=== PATIENT | female | born 1960 | race Asian ===

== ENCOUNTER 2021-07-31 11:49 | Emergency (ER) | payer OTHER ==
[~2021-07-31] VITALS: Ht 147.3 cm; Wt 61.4 kg
[2021-07-31 12:45] VITALS: BP 122/74
[2021-07-31] MEDS ORDERED: DiphenhydrAMINE HCL 25 MG CAPSULE PO ONE (12:45)
== END 2021-07-31 13:04 | disposition home or self-care (01) ==
LOC: EMS 11:55
DX: T78.49XA Other allergy, initial encounter (principal); Y92.89 Other specified places as the place of occurrence of the external cause; X58.XXXA Exposure to other specified factors, initial encounter
CPT/HCPCS: 99283